=== PATIENT | male | born 1985 | race Caucasian/White ===

== ENCOUNTER → 2021-04-13 09:54 | Outpatient (BNVA) | payer MEDICARE, MEDICAID, SELFPAY | PROVIDERS: Visit Provider Anesthesiology | DX: M96.1 Postlaminectomy syndrome, not elsewhere classified (principal); M46.1 Sacroiliitis, not elsewhere classified; M53.3 Sacrococcygeal disorders, not elsewhere classified; G89.4 Chronic pain syndrome; Z79.891 Long term (current) use of opiate analgesic | CPT/HCPCS: 99202 ==

== ENCOUNTER 2021-05-24 06:18 | Outpatient (REF) | payer MEDICARE, MEDICAID, SELFPAY ==
--- NOTE | ~2021-05-24 | FL_ITS ---
EXAMINATION: XR FLUOROSCOPY WITH IMAGES CLINICAL INFORMATION: Sacrococcygeal disorders. COMPARISON: None. TECHNIQUE: Fluoroscopy performed by Dr. Raina Trinidad. Fluoroscopy time: 0.2 minutes DAP: 5.09 Gycm2 Images: 1 FINDINGS: There is needle positioned along the inferior right SI joint with contrast opacifying the soft tissues. Incidental noted is bilateral L5 pedicular screws with connecting rods extending superiorly not in the [id number]. FL/FL guidance in treatment room IMPRESSION: Fluoroscopy was provided to referring physician for pain management.
== END 2021-05-24 06:19 | disposition home or self-care (01) ==
LOC: HO.RADIR 06:18
PROVIDERS: Visit Provider Anesthesiology
DX: M53.3 Sacrococcygeal disorders, not elsewhere classified (principal); G89.4 Chronic pain syndrome; M96.1 Postlaminectomy syndrome, not elsewhere classified; M46.1 Sacroiliitis, not elsewhere classified; Z79.891 Long term (current) use of opiate analgesic
CPT/HCPCS: 27096; J3300; Q9967

== ENCOUNTER 2025-05-26 09:34 | Outpatient (REF) | payer OTHER, SELFPAY ==
[2025-05-26 13:55] LABS: MANUAL DIFF FLAG NO
[2025-05-26 14:02] LABS: Hematocrit 49.1 % (42.0-52.0); Hemoglobin 15.3 g/dl (14.0-18.0); Imm Gran Abs Auto 0.04 X10*3/uL (0.00-0.03); Imm Gran Pct Auto 0.6 % (0.0-0.4); Lymphocytes Absolute Auto 2.2 X10*3/uL (1.2-4.9); Mean Corpuscular HGB Conc 31.2 g/dl (31.0-36.0); Mean Corpuscular Hemoglobin 27.0 pg (27.0-33.0); Mean Corpuscular Volume 86.7 fL (80.0-98.0); NRBC Abs Auto 0.000 X10*3/uL (0.0-0.012); NRBC Pct Auto 0.0 /100WBC (0.0-0.2); Platelet Count 355 X10*3/uL (160-400); Red Blood Count 5.66 X10*6/uL (4.60-5.80); White Blood Count 7.1 X10*3/uL (4.8-10.8)
[2025-05-26 14:30] LABS: Alanine Aminotransferase 36 U/L (0-40); Albumin Level 4.4 g/dL (3.5-5.0); Alkaline Phosphatase 63 U/L (39-117); Anion Gap 11 (12-20); Aspartate Amino Transferase 31 U/L (5-37); Blood Urea Nitrogen 9 mg/dL (9-16); Calcium 9.2 mg/dL (8.4-10.2); Carbon Dioxide 27 mmol/L (22-29); Chloride 106 mmol/L (96-108); Cholesterol 216 mg/dL (<200); Estimated Glomerular Filt Rate > 60; HDL Cholesterol 24 mg/dL (>40); Potassium 4.3 mmol/L (3.3-5.1); Sodium 140 mmol/L (135-145); Total Protein 7.9 g/dL (6.5-8.0); Triglycerides 186 mg/dL (<150)
== END 2025-05-26 09:35 | disposition home or self-care (01) ==
LOC: HO.WFDLDS 09:34
PROVIDERS: PCP Internal Medicine; Visit Provider Internal Medicine
DX: M96.1 Postlaminectomy syndrome, not elsewhere classified (principal); R73.03 Prediabetes; E66.01 Morbid (severe) obesity due to excess calories; M53.3 Sacrococcygeal disorders, not elsewhere classified; G47.33 Obstructive sleep apnea (adult) (pediatric); Z79.891 Long term (current) use of opiate analgesic; Z68.43 Body mass index [BMI] 50.0-59.9, adult
CPT/HCPCS: 36415; 80053; 80061; 83036; 84443; 85025; 96127; 99212

== ENCOUNTER 2025-05-26 09:34 | Outpatient (AMB) | payer MEDICARE, MEDICAID, SELFPAY ==
--- NOTE | 2025-05-26 09:54 | MHC.PC.OV ---
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: New patient visit Service Assistant Required: No Allergies acetaminophen (From TYLENOL) Allergy (Unknown, Verified 05/26/25 09:56) STOMACH UPSET amoxicillin (AMOXICILLIN) Allergy (Unknown, Verified 05/26/25 09:56) Rash Tobacco use date assessed: 05/26/25 Dental Screening Dental Screen Date: 05/26/25 Did you have a dental visit in the last 12 months?: Yes Did you have a dental problem in the last 6 months where you did not have access to dental care?: No Was dental information given to patient?: Patient has dentist HPI HPI Comments History of Present Illness Details 39 year old male with past medical history of failed back syndrome, obesity, MELINA presenting to [facility] MSK: Patient has history of failed back surgery. At least two prior surgeries with Dr Panda > 10 years ago. He did not obtain significant relief and was maintained on opioid regimen. He has tried pain management/physiatry, steroid injections nerve blocks without sustained relief. He has been off opioids for the past 10 months since a new provider was unwilling to prescribe and he has put on additional weight not being mobile. Unabl to currently exercise MELINA: on cpap. Not following with pulm/sleep medicine. ROS CONSTITUTIONAL: Denies weight loss, fever and chills. HEENT: Denies changes in vision and hearing. RESPIRATORY: Denies SOB and cough. CV: Denies palpitations and CP GI: Denies abdominal pain, nausea, vomiting and diarrhea. : Denies dysuria and urinary frequency. MSK: see HPI SKIN: Denies rash and pruritus. NEUROLOGICAL: Denies headache PSYCHIATRIC: Denies recent changes in mood. PHYSICAL EXAM: GENERAL: Alert and oriented x 3. NAD EYES: EOMI. Anicteric. HENT: Moist mucous membranes. No scleral icterus. No cervical lymphadenopathy. LUNGS: Clear to auscultation bilaterally. CARDIOVASCULAR: Regular rate and rhythm. No murmur. No JVD. ABDOMEN: Soft, non-tender +bs EXTREMITIES: No edema. Non-tender. SKIN: No rashes or lesions. Warm. NEUROLOGIC: No focal neurological deficits. CN II-XII grossly intact PSYCHIATRIC: Cooperative. 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 Chronic pain syndrome Sacroiliac joint dysfunction of right side Sacroiliitis Postlaminectomy syndrome of lumbar region Surgical History History of back surgery Hx of appendectomy Family History Mother Stroke DVT (deep venous thrombosis) Social History Housing: Apartment Patient Tobacco Use Status: Current everyday Tobacco user Tobacco use type: Smokeless Tobacco (nicotine pouches) Years Smoked: 20 e-Cigarette/Vaping Use: Never Used Second Hand Smoke Exposure: No service: No Current occupational status: retired and disabled Current occupational exposures/hazards: No Cognitive needs: No Hearing needs: No Vision needs: No Questionnaire PHQ-9 Over the last 2 weeks, how often have you been bothered by any of the following problems? 1. Little interest or pleasure in doing things: not at all 2. Feeling down, depressed, or hopeless: not at all 3. Trouble falling or staying asleep, or sleeping too much: several days 4. Feeling tired or having little energy: not at all 5. Poor appetite or overeating: not at all 6. Feeling bad about yourself - or that you are a failure or have let yourself or your family down: not at all 7. Trouble concentrating on things, such as reading the newspaper or watching television: not at all 8. Moving or speaking so slowly that other people could have noticed. Or the opposite - being so fidgety or restless that you have been moving around a lot more than usual: not at all 9. Thoughts that you would be better off or of hurting yourself in some way: not at all Total score: 1 Depression Screening Interpretation: Negative Depression Screening Done: Yes 58254 - PHQ-9 Billing: Yes Source: Developed by Drs. Adan Galan, Carol Farr, Ronald Land and colleagues, with an educational connor from [employer]. Thrive Questionnaire Date Thrive assessed: 05/19/25 I am a: Patient What is your living situation today?: I have a steady place to live Within the past 12 months, did the food you bought not last and you didn't have the money to get more?: Never true Within the past 12 months, did you worry whether your food would run out before you got money to buy more?: Never true Do you have trouble paying for medicines?: No Do you have trouble getting transportation to medical appointments?: No Do you have trouble paying your heating and electricity bill?: No Do you have trouble taking care of your child, family member or friend?: No Do you have trouble with day-to-day activities such as bathing, preparing meals, shopping, managing finances, etc.?: No Are you currently unemployed and looking for a job?: I choose not to answer this question Are you interested in more education?: No Please select the resources that you would like help with: None Currently or been in a relationship where the following occur: No concerns reported THRIVE Score: 0 AUDIT C Alcohol Use Questionnaire (AUDIT-C) 1. How often do you have a drink containing alcohol?: Never 3. How often do you have six or more drinks on one occasion?: Never Total Score: 0 SHAWNA-7 AMB Questionnaire SHAWNA-7 Feeling nervous, anxious, or on edge: 0 = Not at all Not being able to stop or control worryin = Not at all Worrying too much about different things: 0 = Not at all Trouble relaxin = Not at all Being so restless that it is hard to sit still: 0 = Not at all Becoming easily annoyed or irritable: 0 = Not at all Feeling afraid as if something awful might happen: 0 = Not at all Total SHAWNA-7 score (0-4 normal; 5-9 mild; 10-14 moderate; 15-21 severe): 0 Source: Developed by Carol Bañuelos Kurt Kroenke and colleagues, with an educational connor from [employer]. Physical exam (Primary Care) Vital Signs: Last Vital Signs Temp 98.3 F 05/26/25 09:58 Pulse 112 H 05/26/25 09:58 Resp 14 05/26/25 09:58 BP 168/101 H 05/26/25 10:12 Pulse Ox 97 05/26/25 09:58 Oxygen Delivery Method Room Air 05/26/25 09:58 BMI result Body Mass Index 51.4 Tobacco/Smoking Status: Tobacco use Status Tobacco use date assessed 05/26/25 05/26/25 09:59 Patient Tobacco Use Status Current everyday Tobacco 05/26/25 09:59 Tobacco use type Smokeless Tobacco (nicotine 05/26/25 09:59 pouches) e-Cigarette/Vaping Use Never Used 05/26/25 09:59 PHQ-9: PHQ-9 Score PHQ-9: Total score 1 05/27/25 14:09 Depression Screening Interpretation: Negative Thrive Assessment: Date of Thrive Assessment Date Thrive assessed 05/19/25 05/26/25 09:56 Currently or been in a relationship where the following occur: No concerns reported Coding Level of Care Code Est Pt Level 4 (83510) Diagnoses 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 Z79.891 Obesity, morbid, BMI 50 or higher E66.01 Sacroiliac joint dysfunction of right side M53.3 MELINA (obstructive sleep apnea) G47.33 Additional Codes PHQ-9 - 23756 - PHQ-9 Billing: Yes ([id number]) Assessment & Plan Assessment & Plan (1) 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: Code(s): Z79.891 - 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 Oxycodone 5mg four times daily Obesity-zepbound ordered Will see in 3 months sign CSA Orders: Orders Comprehensive Met. Panel 05/26/25 M96.1 - Postlaminectomy syndrome, not elsewhere classified Hemoglobin A1c 05/26/25 M96.1 - Postlaminectomy syndrome, not elsewhere classified, R73.03 - Prediabetes Lipid Panel 05/26/25 M96.1 - Postlaminectomy syndrome, not elsewhere classified Complete Blood Count Auto Diff 05/26/25 M96.1 - Postlaminectomy syndrome, not elsewhere classified, R73.03 - Prediabetes TSH reflex Free T4 05/26/25 M96.1 - Postlaminectomy syndrome, not elsewhere classified Medications: New Zepbound (tirzepatide (weight loss)) for 4 weeks 2.5 mg (0.5 mL) subcut QWEEK 2 mL 0RF NS E66.01 - Morbid (severe) obesity due to excess calories, G47.33 - Obstructive sleep apnea (adult) (pediatric) morphine ER Partial Fill upon patient request. 15 mg PO Q12H 56 tabs 0RF M53.3 - Sacrococcygeal disorders, not elsewhere classified naloxone 4 mg/actuation (Narcan) spray 1 dose into ONE nostril; alternate nostrils w each dose until help arrives 4 mg intranasal Q3M PRN 2 ea 3RF opioid overdose M96.1 - Postlaminectomy syndrome, not elsewhere classified oxycodone Partial Fill upon patient request. 5 mg PO QID PRN 112 tabs 0RF pain 28 days M96.1 - Postlaminectomy syndrome, not elsewhere classified
[2025-05-26 09:58] VITALS: BP 155/92; PULSE 112; RESP 14; TEMP 36.8; O2SAT 97; BMI 51.4
[2025-05-26 10:12] VITALS: BP 168/101
--- OUTSIDE RECORDS SUMMARY | 2025-05-26 10:43 | XMS_ITS ---
Author Name [facility] Organization Unknown History of Medication Use Medication Directions Dispensed Refills Start Date End Date Stat us acetaminophen 300 mg-codeine 30 mg tablet TAKE 1 TABLET BY MOUTH EVERY 12 HOURS. active azithromycin 250 mg tablet TAKE 2 TABLETS BY MOUTH TODAY, THEN TAKE 1 TABLET DAILY FOR 4 DAYS DIRECTED active docusate sodium 100 mg capsule TAKE 1 CAPSULE BY MOUTH TWICE A DAY WITH PLENTY OF WATER active ibuprofen 600 mg tablet TAKE 1 TABLET BY MOUTH EVERY 6 TO 8 HOURS NEEDED FOR PAIN. active levofloxacin 750 mg tablet TAKE 1 TABLET BY MOUTH EVERY DAY FOR 3 DAYS active lisinopril 20 mg tablet Take 1 tablet every day by oral route. active loratadine 10 mg tablet Take 1 tablet every day by oral route. active metronidazole 0.75 % topical gel APPLY A THIN LAYER TO THE AFFECTED AREA(S) BY TOPICAL ROUTE 2 TIMES PER DAY IN THE MORNING AND EVENING active metronidazole 500 mg tablet TAKE 1 TAB 3X A DAY X3 DAYS DONT DRINK ALCOHOL. MAY TAKE WITH FOOD TO MINIMIZE ABDOMINAL DISCOMFORT active nicotine (polacrilex) 4 mg gum Chew 1 piece of gum every 2 hours by oral route. active oxycodone 5 mg tablet TAKE 1 TABLET BY MOUTH EVERY 6 HOURS NEEDED FOR PAIN FOR SEVERE POST SURGICAL PAIN active OxyContin 15 mg tablet,crush resistant,extended release Take 1 tablet every 12 hours by oral route. active Allergies Allergen Reaction Severity Comment Documented Date Source Statu s AMOXICILLIN [facility] Problems Problem Status Onset Date Problem Type Date of Resoluti on Source Lumbar spondylosis active 2024-10-28 ProblemAct [facility] Lumbar post-laminectomy syndrome active 2024-10-28 ProblemAct [facility] Encounters Encounter Type Encounter Reason Primary Diagnosis Location Date [facility] 10/28/2024 [facility] 09/15/2024 [facility] 09/15/2024 Care Team Organization Name Specialty Phone Email Start Date End Da te Decision [facility] 2024
--- OUTSIDE RECORDS SUMMARY | 2025-05-26 10:43 | XMS_ITS | Clinical Summary ---
Author Organization 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 01/28/2018 Active Active Problems Problem Noted Date Diagnosed Date Dyslipidemia 05/30/2024 Prediabetes 05/30/2024 MELINA (obstructive sleep apnea) 11/15/2022 Obesity, Class III, BMI 40-4 9.9 (morbid obesity) (CMS/[facility] V28) 02/20/2022 Failed back syndrome 10/09/2017 Essential hypertension 03/22/2016 Acne vulgaris 03/01/2016 Obesity 06/07/2015 Radicular low back pain 10/22/2013 Overview (05/30/2024): 06/30/2015 Laminoforaminotomy with decompression right L4-L5, microdissection hardware placement [facility] Dr. Gruber Immunizations Immunization Administration Dates Next Due Influenza trivalent, 0.5mL, preservative free (Fluarix; FluLaval; Fluzone) ages 6mo and older (Afluria) 3 years and older 05/10/2015 Td Tetanus diptheria (Tdvax) 7yo and older 06/27 Tdap Tetanus diptheria acell ular pertussis (Boostrix; Adacel) 7yo and older 05/25/2023 Surgical History Surgery Date Site/Laterality Comments BACK SURGERY 10/20/09 PROCEDURE: HISTORICAL BACK SURGERY; COMMENT: L5.-L5 laminectomy Dno Gruber BACK SURGERY 09/29/14 PROCEDURE: HISTORICAL BACK SURGERY; COMMENT: L4-L5 Microdiscectomy Don Gruber MD BACK SURGERY 06/30/15 PROCEDURE: HISTORICAL BACK SURGERY; COMMENT: L4-L5 fusion Dr. Gruber APPENDECTOMY Medical History Medical History Date Comments Asthma DX:Asthma; COMME NT: as a child Radicular low back pain 10/22/2013 DX:Radic ular low back pain History of spinal fusion 10/22/2013 DX:Hist ory of spinal fusion Elevated blood pressure 10/30/2013 DX:Micro brandon blood pressure History of microdiscectomy 01/15/2015 DX:Hi story of microdiscectomy Hydrosalpinx 07/23/2015 DX:Hydrosalpinx; COMMENT: S/p bilateral salpingectomy 06/14/15 Dr Lama, [facility] Acne vulgaris 03/01/2016 DX:Acne vulgaris Essential hypertension 03/22/2016 DX:Essent ial hypertension Dyslipidemia DX:Dyslipidemia Prediabetes DX:Prediabetes Family History Medical History Relation Name Comments Other: Stroke (aka CVA) x 2, DVT s/p trauma Mother Autoimmune disease Neg Hx Breast cancer Neg Hx Colon cancer Neg Hx Coronary artery disease Neg Hx Diabetes Neg Hx Heart attack Neg Hx Heart failure Neg Hx Hyperlipidemia Neg Hx Hypertension Neg Hx Mental illness Neg Hx Prostate cancer Neg Hx Sleep apnea Neg Hx Thyroid disease Neg Hx Relation Name Status Comments Brother Alive Healthy Daughter 1 Alive Petra, born A pril 2015 Daughter 2 Alive Ila Father Alive Healthy Maternal Grandfather Dm Maternal Grandmother Alive Healthy Mother Alive Healthy Paternal Grandfather Alive Healthy Paternal Grandmother Alive Healthy Sister Alive Healthy Social History Tobacco Use Types Packs/Day Years Used Date Smoking Tobacco: Never Smokeless Tobacco: Current Chew Tobacco Cessation:Ready to Q uit: No; Counseling Given: Not Answered Comments:RARELY Alcohol Use Standard Drinks/Week Comments Not Currently 0 (1 standard drink = 0.6 oz pur e alcohol) Interpersonal Safety Answer Date Record ed Physical Abuse Unrecognized value 12/30/2024 Verbal Abuse Unrecognized value 12/30/2024 Sex and Gender Information Value Date Recorded Sex Assigned at Male 11/10/2024 1:34 PM EDT Legal Sex Male 11:50 PM EST Gender Identity Male 08/22/2024 8:00 AM EST Sexual Orientation Straight 11/10/2024 1: 34 PM EDT Obstetrics History Last Filed Vital Signs Vital Sign Reading Time Taken Comments Blood Pressure 151/78 12/30/2024 10:22 AM EDT Pulse 97 12/30/2024 10:22 AM EDT Temperature 37 C (98.6 F) 12/30/2024 10:22 AM EDT Respiratory Rate 20 12/30/2024 10:22 AM EDT Oxygen Saturation 95% 12/30/2024 10:22 AM EDT Inhaled Oxygen Concentration - - Weight 154 kg (340 lb) 11/25/2024 10:19 AM EDT Height 182.9 cm (6') 11/25/2024 10:19 AM EDT Body Mass Index 46.11 11/25/2024 10:19 AM EDT Plan of Treatment Health Maintenance Due Date Last Done Comments Hepatitis B Vaccines (1 of 3 - 19+ 3-dose series) 2004 HPV Vaccines (1 - 3-dose SCD M series) 2012 HIV Screening 07/16/2022 Hepatitis C Screening 07/16/2022 Medicare Annual Wellness Visit 07/16/2022 Social Influencers of Health Screening 07/16/2022 Hypertension/CHF/CAD Annual BMP Blood Test 02/23/2024 02/22/2023 Depression Screening 08/13/2024 04/23/2018 COVID-19 Vaccine (1 - 2023-2 5 season) 2025 Influenza Vaccine (#1) 2025 05/10/2015 Cholesterol Screening (Lipid Panel) 02/23/2028 02/22/2023 DTaP,Tdap,and Td Vaccines (3 - Td or Tdap) 05/25/2033 05/25/2023, 06/27/2012 RSV Immunization Adult Patients (1 - 1-dose 75+ series) 2060 HIB Vaccines Aged Out No longer eligi ble based on patient's age to complete this topic Hepatitis A Vaccines Aged Out No long er eligible based on patient's age to complete this topic IPV Vaccines Aged Out No longer eligi ble based on patient's age to complete this topic MMR Vaccines Aged Out No longer eligi ble based on patient's age to complete this topic Meningococcal ACWY Vaccine Aged Out N o longer eligible based on patient's age to complete this topic Meningococcal B Vaccine Aged Out No l onger eligible based on patient's age to complete this topic Pneumococcal Vaccine: Pediatrics (0 to 5 Years) and At-Risk Patients (6 to 49 Years) Aged Out No longer eligible b ased on patient's age to complete this topic RSV Immunization Patients Under 20 months Aged Out No longer eligible b ased on patient's age to complete this topic Varicella Vaccines Aged Out No longer eligible based on patient's age to complete this topic Procedures Procedure Name Priority Date/Time Associated Diagnosis Comments ANNUAL BMP BLOOD TEST Routine 02/22/2023 LIPID PANEL Routine 02/22/2023 DEPRESSION SCREENING Routine 04/23/2018 from Last 3 Months or Most Recently Relevant to Health Maintenance Results * Annual BMP Blood Test (02/22/2023) Pathologist [facility] Annual BMP Blood Test abstracted [facility] Provider HEALTH MAINTENANCE Final Result * (ABNORMAL) Lipid panel (02/22/2023) [facility] LDL/HDL Ratio 9(A) 0 - 4 Triglycerides 272(A) 0 - 150 mg/dL Cholesterol 195 0 - 200 mg/dL HDL 22(A) >=40 mg/dL LDL Cholesterol 119(A) 0 - 100 mg/dL Blood Venous blood specimen / Unknown Historical Provider LAB BLOOD ORDERABLES Bibiana l Result * Depression Screening (04/23/2018) Pathologist [facility] Depression Screening abstracted Historical Provider HEALTH MAINTENANCE Final Result from Last 3 Months or Most Recently Relevant to Health Maintenance Insurance [employer] MEDICARE Member Subscriber Plan / Payer (Ef fective 2023-Present) Name:HANSEL FLORES Relation to Subscriber:Self Name:Hansel Flores Payer ID:[id number] Group ID:[id number] Type:Not on file Address: [place] [address] [address] [place] [id number] Care Teams 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 [address] [place] [address] PCP - General 03/12/24
== END 2025-05-26 10:30 | disposition home or self-care (01) ==
LOC: HO.HMCFM 09:35
PROVIDERS: PCP Internal Medicine; Visit Provider Internal Medicine
DX: G47.33 Obstructive sleep apnea (adult) (pediatric) (principal); E66.01 Morbid (severe) obesity due to excess calories; Z68.43 Body mass index [BMI] 50.0-59.9, adult; Z79.891 Long term (current) use of opiate analgesic; M53.3 Sacrococcygeal disorders, not elsewhere classified